=== PATIENT | male | born 1950 | race African-American/Black ===

== ENCOUNTER 2017-08-10 08:34 | Emergency (ER) | payer MEDICARE ==
[~2017-08-10] VITALS: Ht 177.8 cm; Wt 68.0 kg
--- NOTE | ~2017-08-10 | EKG ---
[address] [place] [address] ELECTROCARDIOGRAM REPORT Name: MARKUS CUEVAS [facility]: [id number] Admission: 08/10/17 Attend Phys: Discharge: Date of : 50 Report #: [id number] THIS REPORT FOR: //name// [facility] ED Test Date: 2017-08-10 Test Time: 09:04:21 Pat Name: MARKUS CUEVAS Department: Room: Gender: Manager Finance: TIMOTHY : 1950 Requested By: Heike Finnegan Order Number: [id number] MD: Holland Smith Measurements Intervals [place] Rate: 78 P: 66 [place]: 200 QRS: 1 QRSD: 101 T: 26 QT: 352 QTc: 401 Interpretive Statements Sinus rhythm Compared to ECG 01/21/2017 13:02:54 No significant changes Electronically Signed On 08-10-2017 11:21:56 CDT by Holland Smith [email or web address] <ELECTRONICALLY SIGNED> By: Holland Smith MD 08/10/17 1121 0904 3 Holland Smith MD /FAUSTO
[~2017-08-10 08:34] MED LIST: FLEXERIL PO; MOBIC15 MG PO; NORCO 5-325 TA1 EACH PO
[2017-08-10] MEDS ORDERED: PRAVACHOL20 MG PO (08:43)
[2017-08-10] MEDS ORDERED: ANTIVERT25 MG PO (10:05)
[2017-08-10 10:46] VITALS: BP 140/89
== END 2017-08-10 12:17 | disposition home or self-care (01) ==
LOC: ER 08:34
DX: R42 Dizziness and giddiness (principal); E11.9 Type 2 diabetes mellitus without complications; E78.00 Pure hypercholesterolemia, unspecified

== ENCOUNTER 2021-11-01 16:23 | Emergency (ER) | payer MEDICARE ==
[~2021-11-01] VITALS: Ht 177.8 cm; Wt 97.5 kg
[~2021-11-01 16:23] MED LIST changes: +ANTIVERT25 MG PO; +PRAVACHOL20 MG PO
[2021-11-01 17:51] LABS: ABSOLUTE NEUTROPHILS 2.2 thou/uL (1.4-8.2); BASOPHILS 1.3 % (0.0-2.0); HEMATOCRIT 41.9 % (42.0-52.0); HEMOGLOBIN 13.7 gm/dL (14.0-18.0); LYMPHOCYTES 20.9 % (24.0-44.0); MCH 26.2 pg (26.0-34.0); MCHC 32.6 g/dL (28.0-37.0); MCV 80.3 fL (80.0-100.0); MONOCYTES 14.3 % (1.0-8.0); PLATELET COUNT 156 thou/uL (150-400); POLYS 58.5 % (36.0-66.0); RBC 5.22 mil/uL (4.50-6.00); RDW 14.8 % (10.5-14.5); WBC 3.8 thou/uL (4.0-11.0)
[2021-11-01 17:59] LABS: CALCIUM 8.8 mg/dL (8.5-10.1); CREATININE 1.3 mg/dL (0.7-1.3); POTASSIUM 4.2 mmol/L (3.5-5.1)
[2021-11-01 18:09] LABS: ALBUMIN 3.5 g/dL (3.4-5.0); TOTAL BILIRUBIN 0.3 mg/dL (0.2-1.0); TOTAL PROTEIN 7.2 g/dL (6.4-8.2)
[2021-11-01] MEDS ORDERED: MECLIZINE HCL25 M1 PO (18:20)
[2021-11-01 18:42] VITALS: BP 159/76
--- NOTE | 2021-11-04 07:16 | EKG ---
[place] [address] [facility] [place] [address] ELECTROCARDIOGRAM REPORT Name: MARKUS CUEVAS Room #: [facility]#: [id number] Admission: 11/01/21 Attend Phys: Discharge: 11/01/21 Date of : 50 Report #: [id number] [facility] ED Test Date: 2021-11-01 Test Time: 17:52:48 Pat Name: MARKUS CUEVAS Department: Room: Gender: Awake Overnight Counselor: : 1950 Requested By: Sonido Barron Order Number: [id number] MD: Wong Farah Measurements Intervals [place] Rate: 60 P: 4 SD: 190 QRS: -11 QRSD: 103 T: 4 QT: 397 QTc: 397 Interpretive Statements Sinus rhythm Borderline T abnormalities, inferior leads Baseline wander in lead(s) I,II,aVR Compared to ECG 08/10/2017 09:04:21 T-wave abnormality now present Electronically Signed On 11-04-2021 7:16:07 DESTINATION IMAGINATION COORDINATOR by Wong Farah [email or web address] <ELECTRONICALLY SIGNED> By: Wong Farah MD, [facility] 11/04/21 0716 51 51 Wong Farah MD, FACC /EPI
== END 2021-11-01 18:50 | disposition home or self-care (01) ==
LOC: ER 16:23
PROVIDERS: Emergency Medicine
DX: R42 Dizziness and giddiness (principal); E78.00 Pure hypercholesterolemia, unspecified; E11.9 Type 2 diabetes mellitus without complications; I10 Essential (primary) hypertension; Z79.899 Other long term (current) drug therapy